=== PATIENT | male | born 1970 | race Caucasian/White ===

== ENCOUNTER 2023-09-30 10:56 | Emergency (ER) | payer OTHER ==
[~2023-09-30] VITALS: Ht 177.8 cm; Wt 93.0 kg
[2023-09-30 11:27] LABS: Hemoglobin 15.2 g/dL (13.5-17.5); Mean Corpuscular HGB 32.2 pg (26.0-34.0); Mean Corpuscular Volume 91 fL (80-100); Red Blood Cell Count 4.72 M/mm3 (4.30-5.90); White Blood Cell Count 4.83 K/mm3 (4.00-11.30)
[2023-09-30 11:28] LABS: BASOPHILS ABSOLUTE AUTO 0.04 K/mm3 (0.00-0.23); BASOPHILS PERCENT AUTO 1 % (0-2); EOSINOPHILS ABSOLUTE AUTO 0.12 K/mm3 (0.00-0.68); EOSINOPHILS PERCENT AUTO 3 % (0-6); IMMATURE GRAN ABSOLUTE AUTO 0.01 K/mm3 (0.00-0.10); IMMATURE GRAN PERCENT AUTO 0 % (0-1); LYMPHOCYTES ABSOLUTE AUTO 1.64 K/mm3 (0.84-5.20); LYMPHOCYTES PERCENT AUTO 34 % (21-46); MONOCYTES ABSOLUTE AUTO 0.46 K/mm3 (0.16-1.47); MONOCYTES PERCENT AUTO 10 % (4-13); Mean Corpuscular HGB Conc 35.3 g/dL (31.5-36.5); Mean Platelet Volume 9.8 fL (9.1-12.4); NEUTROPHILS ABSOLUTE AUTO 2.56 K/mm3 (1.96-9.15); NEUTROPHILS PERCENT AUTO 53 % (41-73); Platelet Count 256 K/mm3 (150-400); RDW Coefficient Variation 11.9 % (11.7-14.2); RDW Standard Deviation 39.8 fL (35.1-46.3)
[2023-09-30] MEDS ORDERED: LOSA50 PO (11:30)
[2023-09-30] MEDS ORDERED: Amlodipine Bes2.5 MG PO (11:30)
[2023-09-30] MEDS ORDERED: EUTHYROX88 MCG PO (11:30)
[2023-09-30 11:53] LABS: Albumin, Blood 4.3 g/dL (3.4-5.0); Albumin/Globulin Ratio 1.1 (0.8-1.8); Bilirubin, Total 0.6 mg/dL (0.1-1.0); Bun/Creatinine Ratio 13.7 (12.0-20.0); Creatinine, Blood 1.24 mg/dL (0.60-1.20); Free Thyroxine 1.12 ng/dL (0.70-1.60); Globulin, Blood 3.8 g/dL (2.2-4.0); Potassium, Blood 4.3 mmol/L (3.5-5.5); Total Protein, Blood 8.1 g/dL (6.4-8.2)
[2023-09-30 13:00] VITALS: BP 138/93
== END 2023-09-30 13:08 | disposition home or self-care (01) ==
LOC: ER 10:56
PROVIDERS: Physician Assistant
DX: R07.89 Other chest pain (principal); I10 Essential (primary) hypertension; E03.9 Hypothyroidism, unspecified; Z79.890 Hormone replacement therapy; Z79.899 Other long term (current) drug therapy
CPT/HCPCS: 71046; 80053; 84439; 84484; 85025; 85379; 93005; 93010; 99285-25

== ENCOUNTER 2023-11-10 07:43 | Day surgery (SDC) | payer OTHER ==
[~2023-11-10 07:43] MED LIST: Amlodipine Bes2.5 MG PO; EUTHYROX88 MCG PO; LOSA50 PO
== END 2023-11-10 23:08 | disposition home or self-care (01) ==
LOC: CT 07:43
DX: R07.89 Other chest pain (principal); I10 Essential (primary) hypertension
CPT/HCPCS: 75574; Q9967

== ENCOUNTER 2025-03-08 08:30 | Day surgery (SDC) | payer OTHER ==
[~2025-03-08 08:30] MED LIST changes: +AMLO5 PO; +Atropine Sulfate 0.1 MG/ML 10ML SYR ONE; +Glycopyrrolate 0.2 MG/ML 1MLVIAL ONE; +LEVSOD100 PO; +Lactated Ringer's 1,000 ML IV ONE; +Ondansetron HCl 2 MG / ML 2ML Vial ONE; +TOPROL XL25 MG PO; +[UNRECOGNIZED DRUG - OTHER]; +ePHEDrine Sulfate 50 MG/ML 1ML Injection ONE; +propofoL 40 ML IV ONE
[2025-03-08] MEDS ORDERED: Lactated Ringer's 1,000 ML IV ONE (09:51)
[2025-03-08 11:26] VITALS: BP 122/92
== END 2025-03-08 11:10 | disposition home or self-care (01) ==
LOC: ORSCSDS 08:30
PROVIDERS: Surgery
PROC: 0DJD8ZZ Inspection of Lower Intestinal Tract, Via Natural or Artificial Opening Endoscopic (ICD-10-PCS; principal; 2025-03-08 09:45)
DX: Z12.11 Encounter for screening for malignant neoplasm of colon (principal); I10 Essential (primary) hypertension; E03.9 Hypothyroidism, unspecified; Z79.899 Other long term (current) drug therapy
CPT/HCPCS: J0461; J2405; J2704; J7120

== ENCOUNTER 2025-07-19 12:24 | Emergency (ER) | payer OTHER ==
[~2025-07-19] VITALS: Ht 177.8 cm; Wt 93.0 kg
[~2025-07-19 12:24] MED LIST changes: -Atropine Sulfate 0.1 MG/ML 10ML SYR ONE; -Glycopyrrolate 0.2 MG/ML 1MLVIAL ONE; -Lactated Ringer's 1,000 ML IV ONE; -Ondansetron HCl 2 MG / ML 2ML Vial ONE; -ePHEDrine Sulfate 50 MG/ML 1ML Injection ONE; -propofoL 40 ML IV ONE
[2025-07-19 12:56] VITALS: BP 153/89
[2025-07-19] MEDS ORDERED: Ketorolac Tromethamine 15mg Vial IM ONE (15:45)
[2025-07-19] MEDS ORDERED: Lidocaine 4% 1 Patch TOP ONE (15:45)
[2025-07-19] MEDS ORDERED: ASPERFLEX1 EACH TOP (15:50)
[2025-07-19] MEDS ORDERED: Robaxin750 MG PO (15:50)
== END 2025-07-19 16:12 | disposition home or self-care (01) ==
LOC: ER 12:24
DX: M54.50 Low back pain, unspecified (principal); I10 Essential (primary) hypertension; E03.9 Hypothyroidism, unspecified; Z91.81 History of falling; Z79.890 Hormone replacement therapy; Z79.899 Other long term (current) drug therapy
CPT/HCPCS: 72131; 96372; 99283-25; A9270; J1885